=== PATIENT | female | born 1985 | race Caucasian/White ===

== ENCOUNTER 2018-05-27 14:00 | Outpatient (RCR) | payer BC, SELFPAY | END 2018-05-27 14:01 | disposition home or self-care (01) | LOC: PT 14:00 | PROVIDERS: Family Provider Family Medicine; Visit Provider Psychiatry & Neurology Sleep Medicine | DX: R26.9 Unspecified abnormalities of gait and mobility (principal) | CPT/HCPCS: 97010; 97014; 97110; 97112; 97140; 97163; 97164; G0283 ==

== ENCOUNTER 2018-10-16 02:02 | Observation (INO) ==
[2018-10-16 02:19] LABS: Microscopic, Urine URINE MICROSCOPIC (MICROSCOPIC)
[2018-10-16 02:20] LABS: Appearance,Urine SL CLOUDY (Clear); Blood, Urine Negative (Negative); Color,Urine YELLOW (Yellow); Glucose,Urine (UA) Negative (Negative); Ketones,Urine 3+ (Negative); Leukocyte Esterase,Urine Negative (Negative); PH,Urine 7.5 (5.0-8.5); Protein,Urine 1+ (Negative); Specific Gravity, Urine 1.015 (1.005-1.030); Urobilinogen,Urine 0.2 EU/dl (0.2)
[2018-10-16 02:22] LABS: Bilirubin,Urine Negative (Negative)
[2018-10-16 02:23] LABS: Amorphous Sediment,Urine 1+ /lpf; Bacteria,Urine Trace /lpf; Mucus,Urine 1+ /lpf
[2018-10-16 02:32] LABS: Lymphocytes # 0.7 K/mm3 (0.7-4.5); Monocytes # 0.3 K/mm3 (0.1-1.0)
[2018-10-16 02:41] LABS: Albumin Level 3.8 gm/dL (3.4-5.0); Albumin/Globulin Ratio 0.9 (1.1-1.8); Anion Gap 22.8 mEq/L (5-15); Basophils % 0.5 % (0.1-2.0); Bilirubin,Total 1.1 mg/dL (0.2-1.0); Calcium 9.1 mg/dL (8.5-10.1); Eosinophils % 0.7 % (0.1-12.0); Globulin 4.3 gm/dl (1.3-3.2); Lymphocytes % 15.9 % (10-50); Mean Corpuscular HGB Conc 32.9 g/dL (31.8-35.4); Mean Corpuscular Hemoglobin 31.1 pg (27.0-31.2); Mean Corpuscular Volume 94.5 fl (81-99); Mean Platelet Volume 8.3 fl (7.4-10.4); Monocytes % 6.2 % (1.7-9.3); Neutrophils # 3.6 K/mm3 (1.8-7.8); Neutrophils % 76.6 % (37.0-80.0); Platelet Count 246 K/mm3 (142-424); Red Blood Count 5.94 M/mm3 (4.20-5.40); Red Cell Distribution Width 16.8 % (11.5-17.5); Total Protein,Serum 8.1 gm/dL (6.4-8.2); White Blood Count 4.6 K/mm3 (4.8-10.8)
[2018-10-16 02:42] LABS: Potassium 2.8 mmoL/L (3.5-5.1)
[2018-10-16 02:44] LABS: Amphetamine/Metha Screen,Urine Negative ng/mL (<1000); Barbiturates Screen,Urine Negative ng/mL (<200); Benzodiazepines Screen,Urine Negative ng/mL (<200); Cannabinoid Screen,Urine Positive ng/mL (<50); Cocaine Screen,Urine Negative ng/mL (<300); Methadone Screen,Urine Negative ng/mL (<300); Opiate Screen,Urine Negative ng/mL (<300); Phencyclidine Screen,Urine Negative ng/mL (<25)
[2018-10-16 02:44] LABS: Hematocrit 56.1 % (37.0-47.0); Hemoglobin 18.5 g/dL (12.2-16.2)
--- NOTE | 2018-10-16 03:12 | Emergency Department Note ---
ED Disposition Clinical Impression: Nausea & vomiting, Diarrhea, Pancolitis, Severe dehydration, Hypokalemia Disposition: Admitted As Inpatient Condition on Discharge: Serious Referrals: Provider,Referral, MD [Primary Care Provider] - - Critical Care Critical Care Time: Yes Attestation: On 10/16/18, the high probability of a clinically significant, sudden or life threatening deterioration of the following system(s) required my full and direct attention, intervention and personal management. The time I documented below is in addition to time spent performing reported procedures but includes the f ollowing listed in this critical care notation. Vital system(s) involved:: Circulatory Failure, Metabolic Failure My critical care processes included: Assessment & monitoring of V/S Medical Decision Making - Medical Records Medical records reviewed: Yes: I reviewed the patient's medical records. MR Comment: Discussed case with hospitalist control systems engineer (Dr. Patel). SBAR given. Patient admitted to his care for farther management and monitoring. Patient remained stable during her ED care. - Feliberto Inquiry Pt receiving controlled substance: No Feliberto was queried for this patient: No Vital Signs: 10/16/18 02:19 Temperature 98.3 F Temperature Source Temporal Artery Scan Pulse Rate [Right] 107 H Respiratory Rate 22 Blood Pressure [Right Arm] 118/87 Blood Pressure Mean [Right Arm] 97 02 Sat by Pulse Oximetry 97 - Lab Data Lab Results 10/16/18 02:11: Urine Color Yellow, Urine Appearance Sl cloudy, Urine pH 7.5, Ur Specific [place] 1.015, Urine Protein 1+, Urine Glucose (UA) Negative, Urine Ketones 3+, Urine Blood Negative, Urine Nitrate Negative, Urine Bilirubin Negative, Urine Urobilinogen 0.2, Ur Leukocyte Esterase Negative, Urine WBC 3-5, Ur Squamous Epith Cells 3-5, Amorphous Sediment 1+, Urine Bacteria Trace, Urine Mucus 1+ 10/16/18 02:11: Urine HCG, Qual Negative 10/16/18 02:11: Urine Opiates Screen Negative, Urine Methadone Screen Negative, Ur Barbituates Screen Negative, Ur Phencyclidine Scrn Negative, Ur Amphetamines Screen Negative, U Benzodiazepines Scrn Negative, Urine Cocaine Screen Negative, U Marijuana (THC) Screen Positive H 10/16/18 02:15: WBC 4.6 L, RBC 5.94 H, Hgb 18.5 H*, Hct 56.1 H, MCV 94.5, MCH 31.1, MCHC 32.9, RDW 16.8, Plt Count 246, MPV 8.3, Neut % (Auto) 76.6, Lymph % (Auto) 15.9, [place] % (Auto) 6.2, Eos % (Auto) 0.7, Baso % (Auto) 0.5, Neut # (Auto) 3.6, Lymph # (Auto) 0.7, [place] # (Auto) 0.3, Eos # (Auto) 0.0, Baso # (Auto) 0.0 10/16/18 02:15: Sodium 136, Potassium 2.8 L*, Chloride 91 L, Carbon Dioxide 25, Anion Gap 22.8 H, BUN 5 L, Creatinine 1.06 H, Estimated Creat Clear 66, Estimated GFR 60, Est GFR ( Amer) 72, Glucose 164 H, Calcium 9.1, Total Bilirubin 1.1 H, AST 79 H, ALT 87 H, Alkaline Phosphatase 155 H, Total Protein 8.1, Albumin 3.8, Globulin 4.3 H, Albumin/Globulin Ratio 0.9 L, Lipase 140 10/16/18 02:15: Plasma/Serum Alcohol 0 10/16/18 02:15: Lactate 5.8 H Result diagrams: 10/16/18 02:15 10/16/18 02:15 Orders (Tests/Meds): ED MEDICATIONS Generic Name Dose Route Start Last Admin Trade Name Freq PRN Reason Stop Dose Admin Sodium Chloride 1,000 mls @ 999 mls/hr 10/16/18 02:30 10/16/18 02:30 Sod Chlor 0.9% 1000ml Bag IV 10/16/18 03:30 999 mls/hr .Q1H1M JASON Administration Sodium Chloride 1,000 mls @ 999 mls/hr 10/16/18 03:00 10/16/18 03:58 Sod Chlor 0.9% 1000ml Bag IV 10/16/18 04:00 999 mls/hr .Q1H1M JASON Administration Levofloxacin/Dextrose 750 mg in 150 mls @ 100 mls/hr 10/16/18 04:00 Levofloxacin 750mg/150ml Premix IV 10/30/18 03:59 Q24H JASON Protocol Metronidazole 250 mg 10/16/18 04:00 Flagyl 250mg/50ml Ivpb IV 10/30/18 03:59 Q8H JASON Sodium Chloride 10 ml 10/16/18 02:23 Saline Flush 10ml Syringe IV 11/15/18 02:22 NEEDED PRN Maintain IV Site Discontinued Medications Generic Name Dose Route Start Last Admin Trade Name Cody PRN Reason Stop Dose Admin Iopamidol 75 ml 10/16/18 03:42 10/16/18 03:43 [id number]; 75ml Vial IV 10/16/18 03:43 75 ml ONCE ONE Administration Protocol Ondansetron HCl 4 mg 10/16/18 02:14 10/16/18 02:30 Zofran 4mg/2ml Vial IV 10/16/18 02:15 4 mg ONCE ONE Administration Potassium Chloride 40 meq 10/16/18 02:44 10/16/18 02:48 Potassium Chloride 20meq/15ml Solution Udc PO 10/16/18 02:45 40 meq ONCE ONE Administration Sodium Chloride 10 ml 10/16/18 03:42 10/16/18 03:43 Rad-Saline Flush 10ml Syringe IV 10/16/18 03:43 10 ml ONCE ONE Administration ORDERS Category Date Time Status CT abdomen pelvis w con Stat Cat Scan 10/16/18 02:47 Taken Occult Blood,Stool Stat Lab 10/16/18 03:59 Ordered Urinalysis and Microscopic Stat Lab 10/16/18 02:11 Ordered Blood Culture Stat Micro 10/16/18 02:15 Received Ova + Parasite Exam Routine Micro 10/16/18 03:59 Ordered Stool Culture Stat Micro 10/16/18 03:58 Ordered Nausea/Vomiting/Diarrhea HPI - General Chief complaint: Nausea/Vomiting/Diarrhea Stated complaint: Vomiting all day Time Seen by Provider: 10/16/18 02:19 Mode of Arrival: Ambulatory Limitations: No Limitations Description of Symptoms (Recalled from ER Triage Doc. by RN): Pt states since 1900 yesterday she has been vomiting, low grade fever, chills, diarrhea and body aches. - History of Present Illness HPI Narrative: Patient with prior history of C-diff colitis, comes to the ED with complains of nausea, vomiting, diarrhea for several day. Reports multiple episodes of emesis and watery, non-bloody diarrhea. Denies fever, chills, chest pain, sob. Reports intermittent abdominal cramps. Patient also reports similar symptoms every few weeks. States she has an appointment with GI next month. Admits to using Marijuana frequently. Last use was a week ago. Denies use of alcohol. MD complaint: nausea, vomiting, diarrhea - Related Data Home Medications Medication Instructions Recorded Confirmed raNITIdine HCl [Ranitidine HCl] 75 mg PO DAILY 10/16/18 10/16/18 Allergies Allergy/AdvReac Type Severity Reaction Status Date / Time No Known Allergies Allergy Unverified 10/12/17 15:10 [facility] History - Hepatitis A Screen Drug use history?: No High risk sexual behaviors?: No History of sexually transmitted infection?: No Currently employed?: No Childcare worker?: No Do you have indoor plumbing?: Yes Do you have electricity?: Yes Attestation statement:: This patient has been screened for Hepatitis A risk factors. - Social History Smoking Status: Current every day smoker Alcohol Intake: never - Psychiatric History Expresses thoughts of harming self/others: None Suicide Plan Description: No Plan ROS Obtained: Yes All systems reviewed & no additional complaints - Gastrointestinal Gastrointestingal: Reports: as per HPI Physical Exam - General General appearance: alert, in no apparent distress - Head Head exam: atraumatic, normocephalic, normal inspection - Eye Eye exam: Present: normal appearance, PERRL, EOMI - ENT ENT exam: Present: normal exam, normal oropharynx, mucous membranes moist, TM's normal bilaterally, normal external ear exam - Neck Neck exam: Present: normal inspection, full ROM, trachea midline. Absent: meningismus, lymphadenopathy - Chest Chest inspection: Present: normal inspection, symmetric chest wall rise. Absent: tenderness - Respiratory Respiratory exam: Present: normal lung sounds bilaterally. Absent: respiratory distress - Cardiovascular Cardiovascular exam: Present: regular rate, normal rhythm. Absent: JVD - Abdominal Exam Abdominal exam: Present: soft, tenderness (Mild diffuse tenderness to palpation. No rebound or guarding. No palpable organomegaly.), normal bowel sounds. Absent: distention, guarding - Extremities Exam Extremities exam: Present: normal inspection, full ROM, normal capillary refill. Absent: calf tenderness - Back Exam Back exam: Present: normal inspection. Absent: tenderness - Neurological Exam Neurological exam: Present: alert, oriented X3 - Psychiatric Psychiatric exam: Present: normal affect, normal mood - Skin Skin exam: Present: warm, dry, intact, normal color - Lymphatic Lymphatic Findings: no adenopathy
--- NOTE | 2018-10-16 08:06 | History & Physical Report ---
*Admission Date: 10/16/18 *Chief complaint: Vomiting, cramping, diarrhea *History of present illness: 33-year-old white female with history of tobacco use disorder/nicotine dependence and marijuana use disorder along with idiopathic peripheral sensory neuropathy, who presented to the emergency department with 24 hours of vomiting, cramping, inability to keep food and fluids down and abdominal pain with 2 or 3 episodes of diarrhea without mucus or blood. She denied fevers but reported chills. In the emergency department she was found to be significantly hypokalemic. CT scan revealed the presence of colitis, most likely infectious. She was admitted to hospital for IV fluids, electrolyte replacement and antibiotic therapy. [facility] History I have reviewed the patient's past medical history: Yes Medical History: Reports:: Gall Bladder Disease, Gastroesophageal Reflux Disease(GERD) Comment: Idiopathic sensory and lower extremity neuropathy. Neurologic workup so far negative except for abnormal EMG Other Surgeries: Yes: Cholecystectomy - *Social History Educational Level: Completed College Smoking Status: Current every day smoker Tobacco Type: cigarettes # Packs/Day (cigarettes): 1 #Yrs smoked (if former smoker): 12 Alcohol Intake: never Substance Use Type: marijuana Occupational Status: disabled Housing: house Household Members: family - Psychiatric History Expresses thoughts of harming self/others: None Suicide Plan Description: No Plan *Family Hx:: Anemia, Hyperlipidemia, Hypertension Review of Systems - Review of Systems Review of systems:: pertinent systems reviewed and negative unless documented below - Constitutional Reports anorexia, Reports body ache(s), Reports chills - Eyes Denies blurry vision, Denies change in vision - ENT Reports dry mouth, Denies abnormal hearing, Denies bleeding gums - *Cardiovascular Denies chest pain, Denies chest pain at rest, Denies chest pain with activity, Denies shortness of breath, Denies shortness of breath with activity, Denies leg swelling - *Respiratory Denies change in phlegm color, Denies chest congestion, Denies cough, Denies shortness of breath with activity, Denies excessive phlegm production - *Gastrointestinal Reports abdominal pain, Reports belching, Reports bloating, Reports change in bowel habits, Reports cramping, Reports loose stools, Denies coffee ground vomit, Denies constipation - *Genitourinary Denies abnormal periods - *Musculoskeletal Denies abnormal walking, Denies joint pain - Integumentary/Breasts Denies acne, Denies hair loss, Denies change in skin color - *Neurologic Reports burning sensations, Reports dizziness, Denies abnormal walking, Denies abnormal hearing - Psychiatric Reports abnormal sleep pattern - Endocrine Denies cold intolerance, Denies excessive sweating Meds Home Medications Medication Instructions Recorded Confirmed Type raNITIdine HCl [Ranitidine HCl] 75 mg PO DAILY 10/16/18 10/16/18 History Allergies Allergy/AdvReac Type Severity Reaction Status Date / Time No Known Allergies Allergy Unverified 10/12/17 15:10 Exam Vital signs and Labs for Last 24 Hours: Temp Pulse Resp BP Pulse Ox 97.9 F 87 22 133/88 97 10/16/18 05:29 10/16/18 05:29 10/16/18 05:29 10/16/18 05:29 10/16/18 05:29 Laboratory Results - last 24 hr 10/16/18 02:11: Urine Color Yellow, Urine Appearance Sl cloudy, Urine pH 7.5, Ur Specific [place] 1.015, Urine Protein 1+, Urine Glucose (UA) Negative, Urine Ketones 3+, Urine Blood Negative, Urine Nitrate Negative, Urine Bilirubin Neg ative, Urine Urobilinogen 0.2, Ur Leukocyte Esterase Negative, Urine WBC 3-5, Ur Squamous Epith Cells 3-5, Amorphous Sediment 1+, Urine Bacteria Trace, Urine Mucus 1+ 10/16/18 02:11: Urine HCG, Qual Negative 10/16/18 02:11: Urine Opiates Screen Negative, Urine Methadone Screen Negative, Ur Barbituates Screen Negative, Ur Phencyclidine Scrn Negative, Ur Amphetamines Screen Negative, U Benzodiazepines Scrn Negative, Urine Cocaine Screen Negative, U Marijuana (THC) Screen Positive H 10/16/18 02:15: WBC 4.6 L, RBC 5.94 H, Hgb 18.5 H*, Hct 56.1 H, MCV 94.5, MCH 31.1, MCHC 32.9, RDW 16.8, Plt Count 246, MPV 8.3, Neut % (Auto) 76.6, Lymph % (Auto) 15.9, [place] % (Auto) 6.2, Eos % (Auto) 0.7, Baso % (Auto) 0.5, Neut # (Auto) 3.6, Lymph # (Auto) 0.7, [place] # (Auto) 0.3, Eos # (Auto) 0.0, Baso # (Auto) 0.0 10/16/18 02:15: Sodium 136, Potassium 2.8 L*, Chloride 91 L, Carbon Dioxide 25, Anion Gap 22.8 H, BUN 5 L, Creatinine 1.06 H, Estimated Creat Clear 66, Estimated GFR 60, Est GFR ( Amer) 72, Glucose 164 H, Calcium 9.1, Total Bilirubin 1.1 H, AST 79 H, ALT 87 H, Alkaline Phosphatase 155 H, Total Protein 8.1, Albumin 3.8, Globulin 4.3 H, Albumin/Globulin Ratio 0.9 L, Lipase 140 10/16/18 02:15: Plasma/Serum Alcohol 0 10/16/18 02:15: Lactate 5.8 H 10/16/18 02:15: Magnesium 1.4 10/16/18 06:00: Lactate 3.9 H I & O for Last 24 hours: Intake & Output 10/13/18 10/14/18 10/15/18 10/16/18 11:59 11:59 11:59 11:59 Intake Total 3000 / 3000 Balance 3000 / 3000 Weight 122 lb 7 oz Narrative: Patient is pleasant, talkative, thin. Appears older than her stated age. Oropharynx with poor dentition from significant tobacco use. Lungs are clear with good air expansion. Heart rate regular. No murmurs. Abdomen soft, some subjective pain in both upper quadrants. No rebound. No guarding. No lower abdominal tenderness. No CVA tenderness. Extremities are thin. No rash, tattoo in the left upper back noted with a stylized [place] motif, but no evidence of infection. She has no jaundice or scleral icterus or other skin rash. Moves all extremities well. No evidence of peripheral motor deficit. Cranial nerves are intact. Assessment and Plan (1) Pancolitis Current visit: Yes Status: Acute Category: Medical Code(s): K51.00 - Ulcerative (chronic) pancolitis without complications Agree with admission. Antibiotic therapy. Low-dose steroids to help with cramping. Await serology results advance diet as tolerated (2) Severe dehydration Current visit: Yes Status: Acute Category: Medical Code(s): E86.0 - Dehydration Treat as above. 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 Tylenol for cramping. Replace electrolytes.
[2018-10-16 08:31] LABS: Lymphocytes # 1.2 K/mm3 (0.7-4.5); Mean Corpuscular Volume 94.2 fl (81-99); Red Cell Distribution Width 16.8 % (11.5-17.5)
[2018-10-16 08:41] LABS: Albumin Level 2.7 gm/dL (3.4-5.0); Albumin/Globulin Ratio 0.8 (1.1-1.8); Anion Gap 14.6 mEq/L (5-15); Bilirubin,Total 0.9 mg/dL (0.2-1.0); Globulin 3.2 gm/dl (1.3-3.2); Total Protein,Serum 5.9 gm/dL (6.4-8.2)
[2018-10-16 08:48] LABS: Potassium 2.6 mmoL/L (3.5-5.1)
[2018-10-16 08:52] LABS: Basophils % 0.3 % (0.1-2.0); Eosinophils % 0.2 % (0.1-12.0); Hematocrit 45.1 % (37.0-47.0); Lymphocytes % 20.1 % (10-50); Mean Corpuscular HGB Conc 32.9 g/dL (31.8-35.4); Mean Platelet Volume 8.4 fl (7.4-10.4); Monocytes # 0.4 K/mm3 (0.1-1.0); Monocytes % 7.4 % (1.7-9.3); Neutrophils # 4.3 K/mm3 (1.8-7.8); Neutrophils % 72.1 % (37.0-80.0); Platelet Count 188 K/mm3 (142-424); Red Blood Count 4.79 M/mm3 (4.20-5.40); White Blood Count 5.9 K/mm3 (4.8-10.8)
[2018-10-16 08:54] LABS: Calcium 7.3 mg/dL (8.5-10.1)
[2018-10-16 08:55] LABS: Hemoglobin 14.8 g/dL (12.2-16.2)
--- NOTE | 2018-10-16 10:16 | Pharmacy Consult Notes ---
[facility] Pharmacy VTE Monitoring - Patient Demographics Admission date: 10/16/18 Report Date: 10/16/18 Time: 10:16 Allergies/Adverse Reactions: Patient Allergies No Known Allergies Allergy (Unverified 10/12/17 15:10) Height: 1.65 m Weight: 55.537 kg Patient Problems: Current Active Problems Nausea & vomiting (Acute) Diarrhea (Acute) Pancolitis (Acute) Severe dehydration (Acute) Hypokalemia (Acute) Polycythemia secondary to smoking (Acute) Idiopathic peripheral neuropathy (Acute) - VTE Risk Labs: VTE Related Lab Results Hgb 14.8 g/dL (12.2-16.2) D 10/16/18 08:05 Hct 45.1 % (37.0-47.0) 10/16/18 08:05 Plt Count 188 K/mm3 (142-424) 10/16/18 08:05 BUN 4 mg/dL (7-18) L 10/16/18 08:05 Creatinine 0.67 mg/dL (0.55-1.02) D 10/16/18 08:05 Estimated Creat Clear 105 mL/min (50-200) 10/16/18 08:05 Was VTE Risk Assessment Performed: Yes VTE Score: 3 VTE Risk Level: Low Risk - Prophylaxis Types of VTE Prophylaxis: TEDS Knee High Location of Applied Device: Bilateral Lower Extremeties (GARRY HOSE ORDER PLACED)
[2018-10-16 16:34] LABS: Anion Gap 14.5 mEq/L (5-15); Calcium 7.1 mg/dL (8.5-10.1); Potassium 3.5 mmoL/L (3.5-5.1)
[2018-10-17 06:06] LABS: Basophils % 0.3 % (0.1-2.0); Eosinophils # 0.1 K/mm3 (0.0-0.4); Eosinophils % 1.8 % (0.1-12.0); Hematocrit 46.5 % (37.0-47.0); Hemoglobin 14.7 g/dL (12.2-16.2); Lymphocytes # 1.5 K/mm3 (0.7-4.5); Lymphocytes % 31.6 % (10-50); Mean Corpuscular HGB Conc 31.7 g/dL (31.8-35.4); Mean Corpuscular Hemoglobin 31.6 pg (27.0-31.2); Mean Corpuscular Volume 99.8 fl (81-99); Mean Platelet Volume 7.9 fl (7.4-10.4); Monocytes # 0.3 K/mm3 (0.1-1.0); Monocytes % 5.4 % (1.7-9.3); Neutrophils # 2.9 K/mm3 (1.8-7.8); Neutrophils % 60.9 % (37.0-80.0); Platelet Count 149 K/mm3 (142-424); Red Blood Count 4.66 M/mm3 (4.20-5.40); Red Cell Distribution Width 16.6 % (11.5-17.5); White Blood Count 4.7 K/mm3 (4.8-10.8)
[2018-10-17 06:20] LABS: Albumin Level 2.7 gm/dL (3.4-5.0); Albumin/Globulin Ratio 0.9 (1.1-1.8); Anion Gap 14.8 mEq/L (5-15); Bilirubin,Total 0.8 mg/dL (0.2-1.0); Calcium 7.4 mg/dL (8.5-10.1); Globulin 2.9 gm/dl (1.3-3.2); Potassium 4.8 mmoL/L (3.5-5.1); Total Protein,Serum 5.6 gm/dL (6.4-8.2)
--- NOTE | 2018-10-17 07:54 | Progress Note ---
Internal Medicine - PN: Subj *Date: 10/17/18 *Time: 07:52 Interval history: Patient slept fairly well overnight, one episode of diarrhea, a couple episodes of vomiting per patient. Belly feels better. Exam Vital signs and Labs for Last 24 Hours: Temp Pulse Resp BP Pulse Ox 98.1 F 56 L 18 116/65 97 10/17/18 04:00 10/17/18 04:00 10/17/18 04:00 10/17/18 04:00 10/17/18 04:00 Laboratory Results - last 24 hr 10/16/18 08:05: WBC 5.9 D, RBC 4.79, Hgb 14.8 D, Hct 45.1, MCV 94.2, MCH 31.0, MCHC 32.9, RDW 16.8, Plt Count 188, MPV 8.4, Neut % (Auto) 72.1, Lymph % (Auto) 20.1, [place] % (Auto) 7.4, Eos % (Auto) 0.2, Baso % (Auto) 0.3, Neut # (Auto) 4.3, Lymph # (Auto) 1.2, [place] # (Auto) 0.4, Eos # (Auto) 0.0, Baso # (Auto) 0.0 10/16/18 08:05: Sodium 140, Potassium 2.6 L*, Chloride 101, Carbon Dioxide 27, Anion Gap 14.6, BUN 4 L, Creatinine 0.67 D, Estimated Creat Clear 105, E stimated GFR 101, Est GFR ( Amer) 123 D, Glucose 107 H D, Calcium 7.3 L D, Total Bilirubin 0.9, AST 59 H D, ALT 63 D, Alkaline Phosphatase 105, Total Protein 5.9 L D, Albumin 2.7 L D, Globulin 3.2, Albumin/Globulin Ratio 0.8 L 10/16/18 08:05: Lactate 1.2 10/16/18 16:05: Sodium 138, Potassium 3.5 D, Chloride 103, Carbon Dioxide 24, Anion Gap 14.5, BUN 3 L, Creatinine 0.60, Estimated Creat Clear 117, Estimated GFR 115, Est GFR ( Amer) 139, Glucose 91, Calcium 7.1 L 10/16/18 17:00: Stool Occult Blood Positive A 10/16/18 17:00: Stl Aeromonas (PCR) Not detected, Stl C. cayetanensis PCR Not detected, Stool Rotavirus (PCR) Not detected, Stl Adenov F 40/41 PCR Not detected, Stool Astrovirus (PCR) Not detected, Stool Campylobacter PCR Not detected, Stl C.difficile Tox PCR Detected A, Stool Cryptosporidium PCR Not detected, Stl E.coli Shiga Tox PCR Not detected, Stool E coli O157 PCR Not detected, Stl Enterotoxigenic E PCR Not detected, Stool EPEC (PCR) Not detected, Stool EAEC (PCR) Not detected, Stl E. histolytica PCR Not detected, Stool Giardia Lamblia PCR Not detected, Stool Salmonella PCR Not detected, Stool Sapovirus (PCR) Not detected, Stl P. shigelloides PCR Not detected, Stl Shigella/EIEC PCR Not detected, St Y.enterocolitica PCR Not detected, Stool Vibrio (PCR) Not detected, Stl Vibrio cholerae PCR Not detected, Stl Norovirus GI/GII PCR Not detected 10/17/18 06:01: WBC 4.7 L, RBC 4.66, Hgb 14.7, Hct 46.5, MCV 99.8 H, MCH 31.6 H, MCHC 31.7 L, RDW 16.6, Plt Count 149, MPV 7.9, Neut % (Auto) 60.9, Lymph % (Auto) 31.6, [place] % (Auto) 5.4, Eos % (Auto) 1.8, Baso % (Auto) 0.3, Neut # (Auto) 2.9, Lymph # (Auto) 1.5, [place] # (Auto) 0.3, Eos # (Auto) 0.1, Baso # (Auto) 0.0 10/17/18 06:01: Sodium 136, Potassium 4.8 D, Chloride 106, Carbon Dioxide 20 L, Anion Gap 14.8, BUN 2 L D, Creatinine 0.51 L, Estimated Creat Clear 138, Estimated GFR 139, Est GFR ( Amer) 168 D, Glucose 102, Calcium 7.4 L, Total Bilirubin 0.8, AST 60 H, ALT 54, Alkaline Phosphatase 99, Total Protein 5.6 L, Albumin 2.7 L, Globulin 2.9, Albumin/Globulin Ratio 0.9 L I & O for Last 24 hours: Intake & Output 10/14/18 10/15/18 10/16/18 10/17/18 11:59 11:59 11:59 11:59 Intake Total 3340 / 3340 2140 / 2140 Output Total 350 / 350 Balance 3340 / 3340 1790 / 1790 Weight 122 lb 7 oz Microbiology Reports for the Last 24 Hours: Microbiology 10/16/18 17:00 Stool WBC Smear - Final Narrative: Abdomen is soft, lungs are clear, heart rate regular. Patient is alert and oriented. No rash. Pharynx clear. Assessment and Plan (1) Pancolitis Current visit: Yes Status: Acute Category: Medical Code(s): K51.00 - Ulcerative (chronic) pancolitis without complications (2) Severe dehydration Current visit: Yes Status: Acute Category: Medical Code(s): E86.0 - Dehydration (3) Hypokalemia Current visit: Yes Status: Acute Category: Medical Code(s): E87.6 - Hypokalemia (4) Polycythemia secondary to smoking Current visit: Yes Status: Acute Category: Medical Code(s): D75.1 - Secondary polycythemia (5) Idiopathic peripheral neuropathy Current visit: Yes Status: Acute Category: Medical Code(s): G60.9 - H ereditary and idiopathic neuropathy, unspecified - Assessment and plan all Dx Assessment and Plan for all problems:: Electrolytes are improving. Reduce potassium dose supplementation. Advance diet. Discharge home when tolerating foods.
--- NOTE | 2018-10-17 13:27 | Discharge Summary ---
General - General Admission date:: 10/16/18 Discharge date: 10/17/18 HPI HPI: 33-year-old white female with history of tobacco use disorder/nicotine dependence and marijuana use disorder along with idiopathic peripheral sensory neuropathy, who presented to the emergency department with 24 hours of vomiting, cramping, inability to keep food and fluids down and abdominal pain with 2 or 3 episodes of diarrhea without mucus or blood. She denied fevers but reported chills. In the emergency department she was found to be significantly hypokalemic. CT scan revealed the presence of colitis, most likely infectious. She was admitted to hospital for IV fluids, electrolyte replacement and antibiotic therapy. Hospital Course Hospital Course: Patient was admitted, placed on electrolyte replacement and this resolved her hypokalemia. Colitis was treated with antibiotics and steroids as noted and she improved in a stepwise fashion. This morning she was better. Only one episode of vomiting the past 24 hours and diarrhea had resolved. She was able to take p.o. clear liquids and then advance to a low-fat diet for lunch. She will be discharged home today with antibiotics, potassium replacement and steroids. She will follow-up with her regular physician in the next week. Objective Vital signs: Temp Pulse Resp BP Pulse Ox 98.5 F 71 16 125/91 H 97 10/17/18 07:52 10/17/18 07:52 10/17/18 07:52 10/17/18 07:52 10/17/18 08:00 Narrative: Patient is alert. Pleasant. Appears much improved in regards to her admission exam. Lungs are clear. Heart rate regular. Abdomen is soft. Minimal tenderness but vastly improved. No CVA tenderness. No rash. No clubbing, no edema. Neurologic exam unchanged from admission. Results Labs on day of discharge: Labs from last 24 hours 10/17/18 10/17/18 10/16/18 06:01 06:01 17:00 WBC 4.7 L RBC 4.66 Hgb 14.7 Hct 46.5 MCV 99.8 H MCH 31.6 H MCHC 31.7 L RDW 16.6 Plt Count 149 MPV 7.9 Neut % (Auto) 60.9 Lymph % (Auto) 31.6 [place] % (Auto) 5.4 Eos % (Auto) 1.8 Baso % (Auto) 0.3 Neut # (Auto) 2.9 Lymph # (Auto) 1.5 [place] # (Auto) 0.3 Eos # (Auto) 0.1 Baso # (Auto) 0.0 Sodium 136 Potassium 4.8 D Chloride 106 Carbon Dioxide 20 L Anion Gap 14.8 BUN 2 L D Creatinine 0.51 L Estimated Creat Clear 138 Estimated GFR 139 Est GFR ( Amer) 168 D Glucose 102 Calcium 7.4 L Total Bilirubin 0.8 AST 60 H ALT 54 Alkaline Phosphatase 99 Total Protein 5.6 L Albumin 2.7 L Globulin 2.9 Albumin/Globulin Ratio 0.9 L Stool Occult Blood Stl Aeromonas (PCR) Not detected Stl C. cayetanensis PCR Not detected Stool Rotavirus (PCR) Not detected Stl Adenov F 40/41 PCR Not detected Stool Astrovirus (PCR) Not detected Stool Campylobacter PCR Not detected Stl C.difficile Tox PCR Detected A Stool Cryptosporidium PCR Not detected Stl E.coli Shiga Tox PCR Not detected Stool E coli O157 PCR Not detected Stl Enterotoxigenic E PCR Not detected Stool EPEC (PCR) Not detected Stool EAEC (PCR) Not detected Stl E. histolytica PCR Not detected Stool Giardia Lamblia PCR Not detected Stool Salmonella PCR Not detected Stool Sapovirus (PCR) Not detected Stl P. shigelloides PCR Not detected Stl Shigella/EIEC PCR Not detected St Y.enterocolitica PCR Not detected Stool Vibrio (PCR) Not detected Stl Vibrio cholerae PCR Not detected Stl Norovirus GI/GII PCR Not detected 10/16/18 10/16/18 17:00 16:05 WBC RBC Hgb Hct MCV MCH MCHC RDW Plt Count MPV Neut % (Auto) Lymph % (Auto) [place] % (Auto) Eos % (Auto) Baso % (Auto) Neut # (Auto) Lymph # (Auto) [place] # (Auto) Eos # (Auto) Baso # (Auto) Sodium 138 Potassium 3.5 D Chloride 103 Carbon Dioxide 24 Anion Gap 14.5 BUN 3 L Creatinine 0.60 Estimated Creat Clear 117 Estimated GFR 115 Est GFR ( Amer) 139 Glucose 91 Calcium 7.1 L Total Bilirubin AST ALT Alkaline Phosphatase Total Protein Albumin Globulin Albumin/Globulin Ratio Stool Occult Blood Positive A Stl Aeromonas (PCR) Stl C. cayetanensis PCR Stool Rotavirus (PCR) Stl Adenov F 40/41 PCR Stool Astrovirus (PCR) Stool Campylobacter PCR Stl C.difficile Tox PCR Stool Cryptosporidium PCR Stl E.coli Shiga Tox PCR Stool E coli O157 PCR Stl Enterotoxigenic E PCR Stool EPEC (PCR) Stool EAEC (PCR) Stl E. histolytica PCR Stool Giardia Lamblia PCR Stool Salmonella PCR Stool Sapovirus (PCR) Stl P. 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 (5) Idiopathic peripheral neuropathy Status: Chronic Discharge Plan - Patient Discharge Instructions ACTIVITY: Continue current activity DIET: low fat, low cholesterol Patient Instructions: DI for Dehydration -- Adult, DI for Hypokalemia, DI for Colitis - Follow up Plan Follow up with: Ronda Francois [Referring] - 1 week Disposition: Home, Self-Assisted Medications: Home Medications Medication Instructions Recorded Confirmed Type raNITIdine HCl [Ranitidine HCl] 75 mg PO DAILY 10/16/18 10/16/18 History Potassium Chloride [Klor-con 20 20 meq PO DAILY #30 tablet 10/17/18 Rx mEq tablet] levoFLOXacin [Levaquin 500mg 500 mg PO DAILY #7 tab 10/17/18 Rx tab] predniSONE [Deltasone 20mg 20 mg PO BID 7 Days #14 tab 10/17/18 Rx tablet] Prescriptions/Medication Reconciliation: New levoFLOXacin [Levaquin 500mg tab] 500 mg PO DAILY #7 tab Potassium Chloride [Klor-con 20 mEq tablet] 20 meq PO DAILY #30 tablet predniSONE [Deltasone 20mg tablet] 20 mg PO BID 7 Days #14 tab Continue raNITIdine HCl [Ranitidine HCl] 75 mg PO DAILY
== END 2018-10-17 13:47 | disposition home or self-care (01) ==
LOC: ER 02:02 → 2ND 02:02
PROVIDERS: ADMIT Internal Medicine Adolescent Medicine; ATTEND Internal Medicine Adolescent Medicine
DX: G60.9 Hereditary and idiopathic neuropathy, unspecified; E87.6 Hypokalemia; K51.00 Ulcerative (chronic) pancolitis without complications; D75.1 Secondary polycythemia; E86.0 Dehydration
CPT/HCPCS: 36415; 74177; 80048; 80053; 80305; 81001; 81025; 82272; 83605; 83690; 83735; 85025; 85610; 87040; 87045; 87177; 87205; 87324; 87507; 96365; 96366; 96367; 96375; 99284; G0328; G0378; J1956; J2405; Q9967

== ENCOUNTER 2018-12-30 13:30 | Outpatient (RCR) | payer BC, MEDICARE, SELFPAY | END 2018-12-30 13:35 | disposition home or self-care (01) | LOC: PT 13:30 | PROVIDERS: Visit Provider Psychiatry & Neurology Sleep Medicine | DX: G62.9 Polyneuropathy, unspecified (principal) | CPT/HCPCS: 97010; 97014; 97110; 97116; 97163; 97164; G0283 ==

== ENCOUNTER 2019-12-26 13:00 | Outpatient (RCR) | payer MEDICARE, MEDICAID, SELFPAY | END 2019-12-26 13:05 | disposition home or self-care (01) | LOC: OT 13:00 | PROVIDERS: Visit Provider Family Medicine | DX: M62.81 Muscle weakness (generalized) (principal); R26.9 Unspecified abnormalities of gait and mobility; R20.2 Paresthesia of skin | CPT/HCPCS: 97110; 97164; 97166 ==

== ENCOUNTER 2020-01-19 13:00 | Outpatient (RCR) | payer MEDICARE, MEDICAID, SELFPAY | END 2020-01-19 13:05 | disposition home or self-care (01) | LOC: PT 13:00 | PROVIDERS: Visit Provider Family Medicine | DX: M62.81 Muscle weakness (generalized) (principal); R26.9 Unspecified abnormalities of gait and mobility; R20.2 Paresthesia of skin | CPT/HCPCS: 97110; 97112; 97116; 97140; 97163; 97164; 97530 ==

== ENCOUNTER 2021-06-20 13:15 | Emergency (ER) | payer MEDICARE, BC, SELFPAY ==
[2021-06-20 14:40] VITALS: BP 113/68; PULSE 76; RESP 18; TEMP 36.9; O2SAT 97; BMI 25.0
--- NOTE | 2021-06-20 14:55 | HMH.EDUTC ---
[facility] [place] Disposition Clinical Impression: Exposure to COVID-19 virus Disposition: Home, Self-Care Condition on Discharge: Good Instructions: DI for COVID-19 (Suspected or Confirmed ), Preventing the Spread of Coronavirus Discharge Instructions Additional Instructions: Drink plenty of fluids. Take tylenol for pain or fever. Return if you begin to have difficulty breathing. Follow up with your regular doctor. GO TO THE ER FOR ANY WORSENING SYMPTOMS Quarantine until you know the results of your covid-19 test. If it is positive, the health department should call you and give you further instructions about your length of Quarantine and other things. Notify your school or workplace of your results and follow their instructions regarding return to work/school. Referrals: Provider,Referral, [Primary Care Provider] - Time of Disposition: 15:16 Medical Decision Making - Medical Records Medical records reviewed: No: I reviewed the patient's medical records. - Feliberto Inquiry Pt receiving controlled substance: No Vital Signs: 06/20/21 14:40 06/20/21 15:21 Temperature 98.5 F 98.5 F Temperature Source Oral Pulse Rate 76 Pulse Rate [Right Brachial] 76 Respiratory Rate 18 18 Blood Pressure 113/68 Blood Pressure [Right Arm] 113/68 Blood Pressure Mean [Right Arm] 83 Blood Pressure Source [Right Arm] Automatic Cuff Blood Pressure Position [Right Arm] Sitting 02 Sat by Pulse Oximetry 97 Oxygen Delivery Method Room Air [facility] [place] HPI - General Stated complaint: covid test Time Seen by Provider: 06/20/21 14:55 - History of Present Illness Provider Complaint: She has been exposed to covid-19 4 days ago. She has a history of being immunocompromised due to autoimmune issues - Related Data Home Medications Medication Instructions Recorded Confirmed raNITIdine HCl [Ranitidine HCl] 75 mg PO DAILY 10/16/18 10/16/18 Previous Rx's Medication Instructions Recorded Potassium Chloride [Klor-con 20 20 meq PO DAILY #30 tablet 10/17/18 mEq tablet] levoFLOXacin [Levaquin 500mg 500 mg PO DAILY #7 tab 10/17/18 tab] Allergies Allergy/AdvReac Type Severity Reaction Status Date / Time No Known Allergies Allergy Unverified 10/12/17 15:10 [facility] History - Hepatitis A Screen Attestation statement:: This patient has been screened for Hepatitis A risk factors. I have reviewed the patient's past medical history: Yes Medical History: Reports:: Gall Bladder Disease, Gastroesophageal Reflux Disease(GERD) Comment: Idiopathic sensory and lower extremity neuropathy. Neurologic workup so far negative except for abnormal EMG Other Surgeries: Yes: Cholecystectomy - Social History Smoking Status: Current every day smoker Tobacco Type: cigarettes # Packs/Day (cigarettes): 1 #Yrs smoked (if former smoker): 12 Alcohol Intake: never Substance Use Type: marijuana Occupational Status: disabled Housing: house Household Members: family Family Hx:: Anemia, Hyperlipidemia, Hypertension ROS Obtained: Yes All systems reviewed & no additional complaints - Constitutional Constitutional: Reports system reviewed and no additional complaints, except as docu - Eyes Eyes: Reports system reviewed and no additional complaints, except as docu - ENT Ears, Nose, Mouth, and Throat: Reports system reviewed and no additional complaints, except as docu - Cardiovascular Cardiovascular: Reports system reviewed and no additional complaints, except as docu - Respiratory Respiratory: Reports system reviewed and no additional complaints, except as docu - Gastrointestinal Gastrointestingal: Reports: system reviewed and no additional complaints, except as docu Physical Exam - General General appearance: alert, in no apparent distress - Head Head exam: atraumatic, normocephalic, normal inspection - Eye Eye exam: Present: normal appearance, PERRL, EOMI - ENT ENT exam: Present: normal exam
[2021-06-20 15:21] VITALS: BP 113/68; PULSE 76; RESP 18; TEMP 36.9; O2SAT 97
== END 2021-06-20 15:27 | disposition home or self-care (01) ==
PROVIDERS: Emergency Provider Nurse Practitioner Family
DX: Z20.822 Contact with and (suspected) exposure to COVID-19 (principal); K21.9 Gastro-esophageal reflux disease without esophagitis; F17.210 Nicotine dependence, cigarettes, uncomplicated
CPT/HCPCS: G0463; 99202; U0003

== ENCOUNTER 2022-05-22 16:00 | Outpatient (RCR) | payer MEDICARE, MEDICAID, SELFPAY | END 2022-05-22 16:05 | disposition home or self-care (01) | LOC: PT 16:00 | PROVIDERS: Visit Provider Physical Medicine & Rehabilitation | DX: M25.852 Other specified joint disorders, left hip (principal); M24.851 Other specific joint derangements of right hip, not elsewhere classified | CPT/HCPCS: 97010; 97014; 97110; 97116; 97163; 97164; G0283 ==

== ENCOUNTER 2022-09-04 16:00 | Outpatient (RCR) | payer MEDICARE, MEDICAID, SELFPAY | END 2022-09-04 16:05 | disposition home or self-care (01) | LOC: PT 16:00 | PROVIDERS: Visit Provider Family Medicine | DX: R26.89 Other abnormalities of gait and mobility (principal); G57.90 Unspecified mononeuropathy of unspecified lower limb; M62.81 Muscle weakness (generalized) | CPT/HCPCS: 97110; 97112; 97116; 97163; 97164 ==

== ENCOUNTER 2023-01-13 15:00 | Outpatient (RCR) | payer MEDICARE, MEDICAID, SELFPAY | END 2023-01-13 15:05 | disposition home or self-care (01) | LOC: OT 15:00 | PROVIDERS: Visit Provider Physical Medicine & Rehabilitation | DX: M25.511 Pain in right shoulder (principal) | CPT/HCPCS: 97010; 97014; 97035; 97110; 97140; 97164; 97165; 97530; G0283 ==

== ENCOUNTER 2024-02-29 16:00 | Outpatient (RCR) | payer MEDICARE, MEDICAID, SELFPAY | END 2024-02-29 16:05 | disposition home or self-care (01) | LOC: PT 16:00 | PROVIDERS: Visit Provider Psychiatry & Neurology Neurology | DX: M79.604 Pain in right leg (principal); G62.9 Polyneuropathy, unspecified | CPT/HCPCS: 97010; 97014; 97016; 97110; 97112; 97116; 97163; 97164; 97530; G0283 ==